=== PATIENT | female | born 2000 | race African-American/Black ===

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

== ENCOUNTER 2019-07-13 21:29 | Emergency (ER) | payer MEDICAID ==
[2019-07-13 22:00] VITALS: BP 123/76
--- NOTE | 2019-07-13 23:02 | ER Document Report ---
HPI - HPI Time Seen by Provider: 07/13/19 22:57 Context: Patient is a 18-year-old female who presents the emergency department with a chief complaint of a sore throat and cough. She has had her cough for a "while," cannot recall how long he has been. She denies any fevers, body aches, chills. She does not take any medications and she denies any past medical history. Her sore throat started today. Patient admits to vaping and smoking marijuana. She states that she ended up throwing out her vape today. - CONSTITUTIONAL Constitutional: DENIES: Fever, Chills - EENT EENT: REPORTS: Sore Throat, Nasal Drainage-Clear, Congestion. DENIES: Nasal Drainage-Purulent - NEURO Neurology: DENIES: Headache, Weakness, Vision blurred - CARDIOVASCULAR Cardiovascular: DENIES: Chest pain - RESPIRATORY Respiratory: REPORTS: Coughing. DENIES: Trouble Breathing - GASTROINTESTINAL Gastrointestinal: DENIES: Abdominal Pain, Nausea, Patient vomiting, Diarrhea - REPRODUCTIVE Reproductive: DENIES: : - MUSCULOSKELETAL Musculoskeletal: DENIES: Extremity pain - DERM Skin Color: Normal Skin Problems: None Past Medical History - General Information source: Patient - Social History Smoking Status: Current Some Day Smoker Drug Abuse: Marijuana Family History: Reviewed & Not Pertinent Renal/ Medical History: Denies: Hx Peritoneal Dialysis Vertical Provider Document - CONSTITUTIONAL Agree With Documented VS: Yes Exam Limitations: No Limitations General Appearance: No Apparent Distress - INFECTION CONTROL TRAVEL OUTSIDE OF THE [place] IN LAST 30 DAYS: No - HEENT HEENT: Atraumatic, Normocephalic, PERRLA, Pharyngeal Tenderness, Pharyngeal Erythema. negative: Pharyngeal Exudate, Tympanic Membrane Red, Tympanic Membrane Bulging Notes: edema and erythema noted in nasal mucosa. - NECK Neck: Normal Inspection, Supple - RESPIRATORY Respiratory: Breath Sounds Normal, No Respiratory Distress - CARDIOVASCULAR Cardiovascular: Regular Rate, Regular Rhythm Pulses: Normal: Radial - MUSCULOSKELETAL/EXTREMETIES Musculoskeletal/Extremeties: FROM - NEURO Level of Consciousness: Awake, Alert, Appropriate Motor/Sensory: No Motor Deficit, No Sensory Deficit - DERM Integumentary: Warm, Dry, No Rash Course - Re-evaluation Re-evalutation: Minimal erythema noted to her nasal mucosa. Her symptoms are consistent with allergies. A very low suspicion for influenza. Patient denies any fever. Patient will be started on cetirizine and fluticasone to help with her symptoms. Advised her to follow-up with a primary care provider for regular maintenance. I had educated the patient on cessation of marijuana use and vaping. She states that she will not sleep anymore. Follow-up precautions were given. Verbal discharge instructions were given to the patient. They verbalized understanding. They are stable for discharge. Smoking cessation counseling was provided for 4 minutes at the bedside - Vital Signs Vital signs: Temp Pulse Resp BP Pulse Ox 97.9 F 94 H 16 123/76 100 07/13/19 21:58 07/13/19 21:58 07/13/19 21:58 07/13/19 21:58 07/13/19 21:58 Discharge - Discharge Clinical Impression: Rhinorrhea, Seasonal allergies Condition: Stable Disposition: HOME, SELF-CARE Instructions: Sore Throat ([facility]) Additional Instructions: You are seen today in the emergency department for sore throat. Your rapid strep test is negative. You are being started on cetirizine and Flonase. You can buy [id number] cetirizine to help with your symptoms. You are also being sent home with prescription. Please follow-up with health department as needed. Please stop smoking, as it is bad for your lungs. Prescriptions: Cetirizine HCl [All Day Allergy] 10 mg PO DAILY #30 tablet Fluticasone Propionate [Flonase Nasal [place] 50 Mcg/[place] 16 gm] 2 sprays NASL DAILY #1 inhaler Forms: Return to Work
== END 2019-07-13 23:07 | disposition home or self-care (01) ==
LOC: ER 21:29
DX: J30.2 Other seasonal allergic rhinitis (principal); J34.89 Other specified disorders of nose and nasal sinuses; J02.9 Acute pharyngitis, unspecified; R05 Cough; F17.200 Nicotine dependence, unspecified, uncomplicated
CPT/HCPCS: 87070; 87880; 99283

== ENCOUNTER 2019-08-04 01:29 | Emergency (ER) | payer OTHER, MEDICAID ==
[2019-08-04 02:51] LABS: APPEARANCE,URINE SLIGHTLY-CLOUDY; BILIRUBIN,URINE NEGATIVE (NEGATIVE); COLOR,URINE YELLOW; GLUCOSE, URINE NEGATIVE (NEGATIVE); KETONES,URINE NEGATIVE (NEGATIVE); LEUKOCYTE ESTERASE,URINE NEGATIVE (NEGATIVE); NITRITE,URINE NEGATIVE (NEGATIVE); PROTEIN,URINE NEGATIVE (NEGATIVE); URINE SPECIFIC GRAVITY 1.015; UROBILINOGEN,URINE NEGATIVE mg/dL (<2.0)
--- NOTE | 2019-08-04 06:47 | ER Document Report ---
HPI - HPI Pain Level: 2 Notes: Patient is an otherwise healthy 18-year-old female presenting to the emergency department with complaints of abnormal vaginal discharge, left lower quadrant pain and nausea. Patient reports she has irregular periods and also wants to make sure she is not . She denies any fever. She denies any chronic medical conditions other than vaginal warts. - REPRODUCTIVE LMP: approx 2 months ago Reproductive: DENIES: : <ROBERTO ESCAMILLA - Last Filed: 08/04/19 07:48> <MARYAM HERNANDEZ - Last Filed: 08/04/19 09:06> - HPI Time Seen by Provider: 08/04/19 05:33 Past Medical History - General Information source: Patient Last Menstrual Period: 2 mths ago - Social History Smoking Status: Never Smoker Chew tobacco use (# tins/day): No Frequency of alcohol use: None Family History: Reviewed & Not Pertinent Patient has suicidal ideation: No Patient has homicidal ideation: No - Medical History Medical History: Negative Renal/ Medical History: Denies: Hx Peritoneal Dialysis Surgical Hx: Negative - Immunizations Immunizations up to date: Yes <ROBERTO ESCAMILLA - Last Filed: 08/04/19 07:48> Vertical Provider Document - CONSTITUTIONAL Notes: PHYSICAL EXAMINATION: GENERAL: Well-appearing, well-nourished and in no acute distress. HEAD: Atraumatic, normocephalic. EYES: Pupils equal round and reactive to light, extraocular movements intact, conjunctiva are normal. ENT: Nares patent, oropharynx clear without exudates. Moist mucous membranes. NECK: Normal range of motion, supple without lymphadenopathy LUNGS: Breath sounds clear to auscultation bilaterally and equal. No wheezes rales or rhonchi. HEART: Regular rate and rhythm without murmurs ABDOMEN: Soft, nontender, nondistended abdomen. No guarding, no rebound. No masses appreciated. Female : Normal external genitalia, no cervical motion tenderness or adnexal tenderness. Brownish-white thick vaginal discharge with foul smell. Musculoskeletal: Normal range of motion, no pitting or edema. No cyanosis. NEUROLOGICAL: Cranial nerves grossly intact. Normal speech, normal gait. Normal sensory, motor exams PSYCH: Normal mood, normal affect. SKIN: Warm, Dry, normal turgor, no rashes or lesions noted. - INFECTION CONTROL TRAVEL OUTSIDE OF THE [place] IN LAST 30 DAYS: No <ROBERTO ESCAMILLA - Last Filed: 08/04/19 07:48> Course - Re-evaluation Re-evalutation: Laboratory 08/04/19 08/04/19 02:00 06:33 Urine Color YELLOW Urine Appearance SLIGHTLY-CLOUDY Urine pH 6.0 Ur Specific [place] 1.015 Urine Protein NEGATIVE Urine Glucose (UA) NEGATIVE Urine Ketones NEGATIVE Urine Blood NEGATIVE Urine Nitrite NEGATIVE Urine Bilirubin NEGATIVE Urine Urobilinogen NEGATIVE Ur Leukocyte Esterase NEGATIVE Urine WBC (Auto) 1 Urine RBC (Auto) 1 Squamous Epi Cells Auto 5 Urine Mucus (Auto) RARE Urine Ascorbic Acid NEGATIVE Urine HCG, Qual NEGATIVE Epi Cells (Wet Prep) 3+ EPITHELIALS SEEN Bacteria (Wet Prep) 4+ BACTERIA SEEN Trichomonas (Wet Prep) NO TRICHOMONAS SEEN Vaginal WBC FEW WBCS SEEN Vaginal RBC FEW RBCS SEEN Vaginal Yeast YEAST SEEN - Vital Signs Vital signs: Temp Pulse Resp BP Pulse Ox 98.2 F 92 H 18 115/67 98 08/04/19 01:37 08/04/19 01:37 08/04/19 01:37 08/04/19 01:37 08/04/19 01:37 <ROBERTO ESCAMILLA - Last Filed: 08/04/19 07:48> - Re-evaluation Re-evalutation: 08/04/19 09:05 I did discuss in detail with the patient her results of her ultrasound including a very small left ovarian cyst. I did inform the patient to follow-up with [facility] as I provided a referral with her contact information. Patient reports she has seen them in the past. Patient given strict return precautions. - Vital Signs Vital signs: Temp Pulse Resp BP Pulse Ox 98.2 F 92 H 18 115/67 98 08/04/19 01:37 08/04/19 01:37 08/04/19 01:37 08/04/19 01:37 08/04/19 01:37 - Diagnostic Test Radiology reviewed: Reports reviewed Radiology results interpreted by me: 08/04/19 08:57 Transvaginal US 08/04/19 06:47 IMPRESSION: 3 cm simple left ovarian cyst. Trace cul-de-sac fluid. Otherwise unremarkable pelvic ultrasound <MARYAM HERNANDEZ - Last Filed: 08/04/19 09:06> Discharge <ROBERTO ESCAMILLA - Last Filed: 08/04/19 07:48> <MARYAM HERNANDEZ - Last Filed: 08/04/19 09:06> - Discharge Clinical Impression: Bacterial vaginosis, Vaginal yeast infection Ovarian cyst Qualifiers: Laterality: left Qualified Code(s): N83.202 - Unspecified ovarian cyst, left side Condition: Stable Disposition: HOME, SELF-CARE Additional Instructions: You have an overgrowth of natural vaginal bacteria, called bacterial vaginosis. You are being treated with an antibiotic called metronidazole. Do not drink alcohol while taking this medication. Complete all of the antibiotic even if your symptoms have resolved. Return for abdominal pain, vomiting, fever of greater than 101F, or any other symptoms that are worrisome to you. Please follow-up with your UNLOADER OPERATOR or primary care doctor as needed. Your urine shows findings consistent with a urinary tract infection. Please take all the antibiotics as directed even if your symptoms have improved. Please follow-up with your primary care physician as needed. Return to emergency room if you develop fever >101F, persistent vomiting, become lethargic, have severe pain in your sides, or any other symptoms that are concerning to you. Your ultrasound did show a very small left ovarian cyst. This is a ball fluid attached to the ovary. Usually these are very benign and will go away on their own. If you develop pain you can take ibuprofen or Tylenol. Return to the emergency department if your pain significantly increases, you become faint review experience vaginal bleeding. Ovarian Cyst Your examination shows the presence of an ovarian cyst. This is a ball of fluid attached to the ovary. Ovarian cysts in women of child-bearing age are usually innocent. However, the cyst may cause pain when it grows or bursts. An innocent ovarian cyst will usually go away by itself. When the cyst becomes painful, you should rest. Pain medication may be required. Some women find a hot water bottle soothing. The pain usually resolves within one or two days. After menopause, an ovarian cyst may mean a tumor, and requires more aggressive evaluation -- usually surgery is recommended to remove or biopsy the cyst. A very large cyst requires evaluation at any age. Most cysts (even the innocent ones) require follow-up examination. Call the doctor or return at any time if the pain increases significantly, if you become faint, or if you experience vaginal bleeding. Prescriptions: Fluconazole [Diflucan] 150 mg PO ONCE PRN #1 tablet PRN Reason: Metronidazole [Flagyl 500 mg Tablet] 500 mg PO BID #14 tablet Referrals: [facility] [Provider Group] - Follow up as needed
[2019-08-04] MEDS ORDERED: CEFTRIAXONE INJ 250 MG VIAL IM ONE (06:49)
[2019-08-04] MEDS ORDERED: LIDOCAINE 1% INJ-PF (10 MG/ML) 30 ML SDV IM ONE (06:49)
[2019-08-04] MEDS ORDERED: AZITHROMYCIN 250 MG TABLET PO ONE (06:50)
[2019-08-04 08:13] LABS: BACTERIA (WET MOUNT) 4+ BACTERIA SEEN; EPITHELIALS (WET MOUNT) 3+ EPITHELIALS SEEN; RBCS (WET MOUNT) FEW RBCS SEEN; T.VAGINALIS (WET MOUNT) NO TRICHOMONAS SEEN; WBCS (WET MOUNT) FEW WBCS SEEN; YEAST (WET MOUNT) YEAST SEEN
--- NOTE | 2019-08-04 08:48 | RADIOLOGY REPORT (SQ) ---
EXAM DESCRIPTION: U/S NON OB PEL TV W/DOPPLER COMPLETED DATE/TIME: 08/04/2019 8:16 am REASON FOR STUDY: LLQ pain COMPARISON: Pelvic ultrasound 11/22/2018 TECHNIQUE: Dynamic and static grayscale images acquired of the pelvis via transvaginal approach and recorded on PACS. Additional selected color Doppler and spectral images recorded. LIMITATIONS: None. FINDINGS: UTERUS: Contour normal. No mass. Uterus is 7 x 4 x 4 cm in size ENDOMETRIAL STRIPE: No focal or generalized thickening. No masses. Endometrial stripe 3 mm in thickn ess. CERVIX: No nabothian cysts.Cervix is closed, 2.2 cm in length. RIGHT OVARY AND DOPPLER: Normal size, 3.6 x 2.1 x 2.1 cm. No worrisome masses. Normal arterial vascul ar flow without evidence for torsion. LEFT OVARY AND DOPPLER: Normal size, 3.7 x 3.8 x 3.6 cm in size. There is a simple cyst left ovary, 3 cm in diameter. No worrisome masses. Normal arterial vascular flow without evidence for torsion. FREE FLUID: Trace cul-de-sac fluid is present. OTHER: No other significant finding. IMPRESSION: 3 cm simple left ovarian cyst. Trace cul-de-sac fluid. Otherwise unremarkable pelvic ultrasound TECHNICAL DOCUMENTATION: JOB ID: [id number]- All Rights Reserved Rev-03/03 Reading location - IP/workstation name: [email or web address]
[2019-08-04 09:22] VITALS: BP 102/73
[2019-08-04 09:39] LABS: CHLAM PCR DETECTED (NOT DETECT)
== END 2019-08-04 09:24 | disposition home or self-care (01) ==
LOC: ER 01:29
DX: N76.0 Acute vaginitis (principal); B69.89 Cysticercosis of other sites; B37.3 Candidiasis of vulva and vagina; N83.202 Unspecified ovarian cyst, left side; R10.32 Left lower quadrant pain
CPT/HCPCS: 99284; 96372; 87210; 81025; 81001; 87491; 87591; 76830; 93976; J3490; J0696

== ENCOUNTER 2019-10-20 04:22 | Emergency (ER) | payer OTHER, MEDICAID ==
[2019-10-20] MEDS ORDERED: LIDOCAINE 1%/EPINEPHRINE INJ 20 ML VIAL INJ ONE (05:33)
--- NOTE | 2019-10-20 05:40 | ER Document Report ---
ED General - General Chief Complaint: Syncope Stated Complaint: POSSIBLE SEIZURE/HEAD INJURY Time Seen by Provider: 10/20/19 05:21 Notes: Patient is a 19-year-old female that comes emergency department for chief complaint of an episode where she became lightheaded, fell forward, hit her head on a table, and possibly passed out for a few seconds. Boyfriend states that when he helped her up she was awake but he states that he does think she passed out and hit her head. She has been drinking alcohol tonight. She has not had anything to eat since before lunch. She denies chest pain, back pain, numbness, she reports her only pain is in her left forehead area. She was bleeding from an open wound, she states her tetanus is up-to-date. She is on no daily medications, denies . TRAVEL OUTSIDE OF THE [place] IN LAST 30 DAYS: No - Related Data Allergies/Adverse Reactions: No Known Allergies Allergy (Unverified 11/22/18 01:09) Past Medical History - General Information source: Patient - Social History Smoking Status: Never Smoker Frequency of alcohol use: Social Drug Abuse: None Lives with: Family Family History: Reviewed & Not Pertinent Patient has suicidal ideation: No Patient has homicidal ideation: No Renal/ Medical History: Denies: Hx Peritoneal Dialysis - Immunizations Immunizations up to date: Yes Review of Systems - Review of Systems Constitutional: No symptoms reported EENT: See HPI Cardiovascular: No symptoms reported Respiratory: No symptoms reported Gastrointestinal: No symptoms reported Genitourinary: No symptoms reported Female Genitourinary: No symptoms reported Musculoskeletal: See HPI Skin: See HPI Hematologic/Lymphatic: No symptoms reported Neurological/Psychological: See HPI Physical Exam - Vital signs Vitals: Temp Pulse Resp BP Pulse Ox 97.8 F 64 16 101/60 99 10/20/19 04:58 10/20/19 04:58 10/20/19 04:58 10/20/19 04:58 10/20/19 04:58 - Notes Notes: GENERAL: Alert, interacts well. Patient is very petite HEAD: Normocephalic. There is a linear 2 cm laceration which is partial- thickness, just underneath the left eyebrow, not involving the eyelid or eyeball. EYES: Pupils equal, round, and reactive to light. Extraocular movements intact. Normal sclera ENT: Oral mucosa moist, tongue midline. Oropharynx unremarkable. Airway patent. Nares patent, no nasal septal hematoma, TM's intact. NECK: Full range of motion. Supple. Trachea midline. LUNGS: Clear to auscultation bilaterally, no wheezes, rales, or rhonchi. No respiratory distress. No signs of trauma HEART: Regular rate and rhythm. No murmur ABDOMEN: Soft, non-tender. Non-distended. Bowel sounds present in all 4 quadrants. No signs of trauma GENITOURINARY: Deferred EXTREMITIES: Moves all 4 extremities spontaneously. No edema, normal radial and dorsalis pedis pulses bilaterally. No cyanosis. BACK: No signs of trauma. No cervical, thoracic, lumbar midline tenderness. No saddle anesthesia, normal distal neurovascular exam. Moves all extremities in full range of motion. NEUROLOGICAL: Alert and oriented x3. Normal speech. Cranial nerves II through XII grossly intact. PSYCH: Normal affect, normal mood. SKIN: Warm, dry, normal turgor. No rashes or lesions noted. Course - Re-evaluation Re-evalutation: CT of the head and neck was performed because of patient's EtOH although she is not very intoxicated on exam. She is cooperative, her exam is unremarkable except for the laceration over the forehead which was repaired without difficulty. Imaging negative, discussed wound care, postconcussive syndrome, head and p recautions, follow-up, return precautions with patient and significant other at bedside. They state appreciation and agreement. Stable time of discharge. - Vital Signs Vital signs: Temp Pulse Resp BP Pulse Ox 98.6 F 84 16 106/60 100 10/20/19 09:21 10/20/19 09:21 10/20/19 09:21 10/20/19 09:21 10/20/19 09:21 - Laboratory Result Diagrams: 10/20/19 05:39 10/20/19 05:39 Laboratory results interpreted by me: 10/20/19 10/20/19 10/20/19 05:39 05:39 05:45 MCH 26.4 L RDW 15.6 H Glucose 137 H POC Glucose 135 H - EKG Interpretation by Me Additional EKG results interpreted by me: EKG shows sinus rhythm at a rate of 82, QTC of 416, UT interval of 172, normal axis. No Brugada noted. No T wave inversions or ST segment changes in consecutive leads. EKG machine reads as normal Procedures - Laceration/Wound Repair Left eyebrow Wound length (cm): 2 Wound's Depth, Shape: Linear Laceration pre-procedure: Sterile PPE donned, Sterile drapes applied, Shur-Clens applied Anesthetic type: 1% Lidocaine w/epi Volume Anesthetic (mLs): 3 Wound explored: Clean, No foreign body removed Wound Repaired With: Sutures Suture Size/Type: 6:0, Nylon Number of Sutures: 5 Layer Closure?: No Post-procedure NV exam normal: Yes Complications: No Discharge - Discharge Clinical Impression: Head injury Qualifiers: Encounter type: initial encounter Qualified Code(s): S09.90XA - Unspecified injury of head, initial encounter Facial laceration Qualifiers: Encounter type: initial encounter Qualified Code(s): S01.81XA - Laceration without foreign body of other part of head, initial encounter Episode of syncope Qualifiers: Syncope type: unspecified Qualified Code(s): R55 - Syncope and collapse Condition: Stable Disposition: HOME, SELF-CARE Additional Instructions: The imaging is normal, your labs are reassuring. Keep the wound clean, clean with soap and water, you can keep some topical antibiotic over the area. Sutures need to be removed in a week. Avoid getting the area sunburned, consider rubbing in a moisturizing cream daily after the wound has healed and sutures are removed. Please follow head injury precautions listed below. Return for any concerning symptoms including signs of wound infection such as developing swelling, redness, drainage, fever, etc. Head Injury Precautions At this point, there is no evidence that your head injury is serious. Obser vation is necessary, however. Limit activity for the first 24 hours. During the first 24 hours, check to see approximately every two to three hours that the patient is easily arousable, responds normally, and can perform common tasks such as walking without difficulty. Contact your doctor or go to the hospital if any of the following things occur: Persistent vomiting, difficulty in arousing the patient, worsening or continued headache, or failure to improve as expected. Head injuries can cause symptoms that persist for a few days or even a few weeks.
[2019-10-20 05:53] LABS: ABSOLUTE BASOPHILS # (AUTO) 0.1 10^3/uL (0.0-0.2); ABSOLUTE EOSINOPHILS # (AUTO) 0.1 10^3/uL (0.0-0.6); ABSOLUTE MONOCYTES (AUTO) 0.7 10^3/uL (0.1-1.4); ABSOLUTE NEUT (AUTO) 6.9 10^3/uL (1.7-8.2); BASOPHILS % (AUTO) 0.7 % (0-2); EOSINOPHILS % (AUTO) 0.9 % (0-6); HEMATOCRIT 38.4 % (36.0-47.0); HEMOGLOBIN 12.6 g/dL (12.0-15.5); LYMPHOCYTES % (AUTO) 20.5 % (13-45); MEAN CORPUSCULAR HEMOGLOBIN 26.4 pg (27.0-33.4); MEAN CORPUSCULAR HGB CONC 32.7 g/dL (32.0-36.0); MEAN CORPUSCULAR VOLUME 81 fl (80-97); MONOCYTES % (AUTO) 6.7 % (3-13); PLATELET COUNT 272 10^3/uL (150-450); RED BLOOD COUNT 4.76 10^6/uL (3.72-5.28); RED CELL DISTRIBUTION WIDTH 15.6 % (11.5-14.0); SEGMENTED NEUTROPHILS % (AUTO) 71.2 % (42-78); TOTAL CELLS COUNTED % (AUTO) 100 %; WHITE BLOOD COUNT 9.8 10^3/uL (4.0-10.5)
[2019-10-20 06:09] LABS: ANION GAP 11 (5-19); BLOOD UREA NITROGEN 12 mg/dL (7-20); CALCIUM 9.7 mg/dL (8.4-10.2); CARBON DIOXIDE 25 mmol/L (22-30); CHLORIDE 103 mmol/L (98-107); GLUCOSE 137 mg/dL (75-110); POTASSIUM 3.9 mmol/L (3.6-5.0)
--- NOTE | 2019-10-20 08:27 | EKG REPORT ---
SEVERITY:- NORMAL ECG - SINUS RHYTHM : Confirmed by: Bhupendra Head MD 20-Oct-2019 08:26:58
--- NOTE | 2019-10-20 08:53 | RADIOLOGY REPORT (SQ) ---
EXAM DESCRIPTION: CT HEAD WITHOUT COMPLETED DATE/TIME: 10/20/2019 6:45 am REASON FOR STUDY: head injury, LOC, ETOH COMPARISON: None. TECHNIQUE: Axial images acquired through the brain without intravenous contrast. Images reviewed wi th bone, brain and subdural windows. Additional sagittal and coronal reconstructions were generated. Images stored on PACS. All CT scanners at this facility use dose modulation, iterative reconstruction, and/or weight based d osing when appropriate to reduce radiation dose to as low as reasonably achievable (ALARA). [facility]: Dose Right [facility]: CareDose [facility]: Dose Right [facility]: Teradose 4D [facility]: Smart Think[employer]ine RADIATION DOSE: CT Rad equipment meets quality standard of care and radiation dose reduction techniq ues were employed. CTDIvol: 48.7 mGy. DLP: 980 mGy-cm. mGy. LIMITATIONS: None. FINDINGS: VENTRICLES: Normal size and contour. CEREBRUM: No masses. No hemorrhage. No midline shift. No evidence for acute infarction. Normal gra y/white matter differentiation. No areas of low density in the white matter. CEREBELLUM: No masses. No hemorrhage. No alteration of density. No evidence for acute infarction. EXTRAAXIAL SPACES: No fluid collections. No masses. ORBITS AND GLOBE: No intra- or extraconal masses. Normal contour of globe without masses. CALVARIUM: No fracture. PARANASAL SINUSES: No fluid or mucosal thickening. SOFT TISSUES: No mass or hematoma. OTHER: No other significant finding. IMPRESSION: NORMAL BRAIN CT WITHOUT CONTRAST. EVIDENCE OF ACUTE STROKE: NO. COMMENT: Quality ID # [id number]: Final reports with documentation of one or more dose reduction techniques (e.g., Automated exposure control, adjustment of the mA and/or kV according to patient size, use of iterative reconstruction technique) TECHNICAL DOCUMENTATION: JOB ID: [id number] [employer]- All Rights Reserved Reading location - IP/workstation name: [email or web address]
--- NOTE | 2019-10-20 08:56 | RADIOLOGY REPORT (SQ) ---
EXAM DESCRIPTION: CT CERVICAL SPINE WITHOUT COMPLETED DATE/TIME: 10/20/2019 6:45 am REASON FOR STUDY: head injury, LOC, ETOH COMPARISON: CT brain same date TECHNIQUE: Axial images acquired through the cervical spine without intravenous contrast. Images re viewed with lung, soft tissue and bone windows. Reconstructed coronal and sagittal MPR images review ed. Images stored on PACS. All CT scanners at this facility use dose modulation, iterative reconstruction, and/or weight based d osing when appropriate to reduce radiation dose to as low as reasonably achievable (ALARA). [facility]: Dose Right [facility]: CareDose [facility]: Dose Right [facility]: Teradose 4D [facility]: Smart [employer] RADIATION DOSE: CT Rad equipment meets quality standard of care and radiation dose reduction techniq ues were employed. CTDIvol: 10.5 mGy. DLP: 243 mGy-cm. mGy. LIMITATIONS: None. FINDINGS: ALIGNMENT: Anatomic. MINERALIZATION: Normal. VERTEBRAL BODIES: No fractures or dislocation. DISCS: No significant disc disease. FACETS, LATERAL MASSES, POSTERIOR ELEMENTS: No fractures. No dislocation. No acute findings. HARDWARE: None in the spine. VISUALIZED RIBS: No fractures. LUNG APICES AND SOFT TISSUES: No significant or acute findings. OTHER: No other significant finding. IMPRESSION: NO ACUTE OR SIGNIFICANT FINDINGS IN THE CERVICAL SPINE. TECHNICAL DOCUMENTATION: JOB ID: [id number] Quality ID # [id number]: Final reports with documentation of one or more dose reduction techniques (e.g., Au tomated exposure control, adjustment of the mA and/or kV according to patient size, use of iterative reconstruction technique) 2010 [employer]- All Rights Reserved Reading location - IP/workstation name: [email or web address]
[2019-10-20 09:23] VITALS: BP 106/60
== END 2019-10-20 09:10 | disposition home or self-care (01) ==
LOC: ER 04:22
PROC: 0HQ1XZZ Repair Face Skin, External Approach (ICD-10-PCS; principal; 2019-10-20)
DX: S09.90XA Unspecified injury of head, initial encounter (principal); S01.81XA Laceration without foreign body of other part of head, initial encounter; R55 Syncope and collapse; R51 Headache; W22.03XA Walked into furniture, initial encounter
CPT/HCPCS: 93005; 99284; 36415; 82962; 84703; 85025; 80048; 70450; 72125; 93010; 12011; J3490